=== PATIENT | male | born 1995 | race Caucasian/White ===

== ENCOUNTER 2019-08-31 20:27 | Inpatient (IN) | payer SELFPAY ==
[2019-08-31 20:32] VITALS: BP 145/89; PULSE 94; RESP 18; TEMP 36.4; O2SAT 96; BMI 18.4
--- NOTE | 2019-08-31 20:43 | ED_ITS ---
HPI - Psych General: Chief Complaint: Psychiatric Symptoms Stated Complaint: 96 Time Seen by Provider: 08/31/19 20:35 Source: patient Mode of arrival: ambulatory Limitations: no limitations History of Present Illness: HPI Narrative: 23-year-old male is here with police after being placed on a 96-hour hold. Per family he has been using drugs and has been very paranoid. They state they have been concerned as he has not been himself and thinks that people are out to get him and are watching him. Patient here denies any suicidality or homicidality. He admits to smoking emmanuel nye. Associated symptoms: Deny depression Review of Systems Const: Denies: fever, chills, body aches or change in appetite Eyes: Denies: blurry vision or eye discomfort ENMT: Denies: throat pain or dental pain Card: Denies: chest pain Resp: Denies: shortness of breath GI: Denies: abdominal pain, nausea, vomiting or diarrhea : Denies: painful urination Musc: Denies: neck pain or back pain Skin/Breast: Denies: rash Neuro: Denies: headache Psych: Reports: paranoia; Denies: depression Chris/Lymph: Denies: easy bruising All/Imm: Denies: hives PFSH ED PFSH: Social History Smoking and tobacco status: current every day smoker Physical Exam Const: COMMON NORMALS: no apparent distress, oriented x3 and healthy appearing HENMT: COMMON NORMALS: normocephalic and head/scalp atraumatic HEAD & SCA LP: normocephalic and atraumatic Eye: COMMON NORMALS: PERRL and EOMs intact bilaterally PUPIL: Yes PERRL Neck/C-Spine: COMMON NORMALS: full ROM and supple Chest: COMMONS NORMALS: inspection of chest normal and palpation of chest normal Resp: COMMON NORMALS: normal respiratory effort, no retractions, no use of accessory muscles and clear to auscultation bilaterally AUSCULTATION: clear to auscultation bilaterally Cardio: COMMON NORMALS: regular rate, regular rhythm and no murmurs RATE: regular rate RHYTHM: regular rhythm GI: COMMON NORMALS: normal to inspection, nondistended, normoactive bowel sounds, soft to palpation, non-tender and no masses PALPATION: Yes soft Extremity: COMMON NORMALS: normal to inspection and full ROM Neuro: COMMON NORMALS: oriented x3, moves all extremities and no focal motor deficits Psych: COMMON NORMALS: mental status grossly normal and cooperative THOUGHT PROCESS: illogical Skin: COMMON NORMALS: no rashes or lesions noted and no wounds GENERAL SKIN EXAM: no rashes or lesions noted MDM - Psych MDM Narrative: Medical decision making narrative: Patient presents with acute psychosis with paranoia likely from drug abuse. Patient has no suicidal or homicidal ideations. Patient placed under a 96-hour hold by [facility]. I spoke to psychiatrist Dr. Tenorio and will admit. Lab Data: Labs: Lab Results 08/31/19 08/31/19 08/31/19 Range/Units 20:56 20:56 21:11 WBC 6.7 (4.0-10.0) 10^3/ uL RBC 4.92 (4.1-5.3) 10^6/u L Hgb 15.3 (11.7-16.6) g/dL Hct 45.3 (42.0-52.0) % MCV 92.1 (80-94) fL MCH 31.1 (28.0-34.0) pg MCHC 33.8 (30.0-36.0) g/dL RDW 13.4 (12.1-15.1) % Plt Count 284 (130-400) 10^3/c mm MPV 11.0 H (7.4-10.4) fL Neut % (Auto) 45.1 % Lymph % (Auto) 39.1 % Pickens % (Auto) 6.7 % Eos % (Auto) 7.5 % Baso % (Auto) 1.3 % Neut # (Auto) 3.0 (1.8-7.7) 10^3/u L Lymph # (Auto) 2.6 (0.8-4.8) 10^3/u L Pickens # (Auto) 0.5 (0.2-0.9) 10^3/u L Eos # (Auto) 0.5 (0.0-0.8) 10^3/u L Baso # (Auto) 0.1 (0.0-0.1) 10^3/u L Nucleated RBC % (a uto) 0 % Nucleated RBCs # 0.0 /100WBC Sodium Cancelled Potassium Cancelled Chloride Cancelled Carbon Dioxide Cancelled Anion Gap Cancelled BUN Cancelled Creatinine Cancelled GFR Calculation Cancelled Glucose Cancelled Calculated Osmolal ity Cancelled Calcium Cancelled Total Bilirubin Cancelled AST Cancelled ALT Cancelled Alkaline Phosphata se Cancelled Total Protein Cancelled Albumin Cancelled Globulin Cancelled Salicylates Cancelled Urine Opiates Scre en Negative (Negative) ng/mL Acetaminophen Cancelled Ur Barbiturates Sc reen Negative (Negative) ng/mL Ur Phencyclidine S crn Negative (Negative) ng/mL Ur Amphetamines Sc reen Positive H (Negative) ng/mL U Benzodiazepines Scrn Negative (Negative) ng/mL Urine Cocaine Scre en Negative (Negative) ng/mL U Marijuana (THC) Screen Positive H (Negative) ng/mL Ethyl Alcohol Cancelled Discharge Plan Discharge Patient Disposition: Admitted As Inpatient Clinical Impression: Acute psychosis Condition: Stable Referrals: Sang Apodaca Jr, MD [Family Provider] - Coding Level of Care Code ED Electronic Masking System Operator for Chg Fwd Exam Comprehensive
[2019-08-31 21:00] LABS: Basophils # 0.1 10^3/uL (0.0-0.1); Basophils % 1.3 %; Eosinophils # 0.5 10^3/uL (0.0-0.8); Eosinophils % 7.5 %; Hematocrit 45.3 % (42.0-52.0); Hemoglobin 15.3 g/dL (11.7-16.6); Lymphocytes # 2.6 10^3/uL (0.8-4.8); Lymphocytes % 39.1 %; Mean Corpuscular HGB Conc 33.8 g/dL (30.0-36.0); Mean Corpuscular Hemoglobin 31.1 pg (28.0-34.0); Mean Corpuscular Volume 92.1 fL (80-94); Monocytes # 0.5 10^3/uL (0.2-0.9); Monocytes % 6.7 %; Neutrophils % 45.1 %; Nucleated Red Blood Cells % 0 %; Platelet Count 284 10^3/cmm (130-400); Red Blood Count 4.92 10^6/uL (4.1-5.3); Red Cell Distribution Width 13.4 % (12.1-15.1); White Blood Count 6.7 10^3/uL (4.0-10.0)
[2019-08-31 21:20] LABS: Alanine Aminotransferase 14 U/L (0-41); Albumin Level 4.8 g/dL (3.5-5.2); Alkaline Phosphatase 73 IU/L (40-130); Anion Gap 15.2 (5-19); Aspartate Amino Transferase 18 U/L (0-40); Blood Urea Nitrogen 17 mg/dL (6-20); Calcium 10.1 mg/dL (8.5-10.5); Carbon Dioxide 28 mmol/L (22-29); Chloride 101 mmol/L (98-107); Glomerular Filtration Rate 117.8 mL/min (90-130); Glucose 111 mg/dL (65-115); Osmolality Calculated 287 mOsm/kg (285-295); Potassium 4.2 mmol/L (3.5-5.1); Sodium 140 mmol/L (136-145); Total Bilirubin 0.3 mg/dL (0.15-1.2); Total Protein 6.8 g/dL (6.6-8.7)
[2019-08-31 21:24] LABS: Acetaminophen < 5.0 ug/mL (10-30); Alcohol Level < 10 mg/dL (0-10); Salicylate < 0.3 mg/dL (3-10)
[2019-08-31 21:27] LABS: Amphetamines Screen Urine Positive (Negative); Barbiturates Screen Urine Negative (Negative); Benzodiazepines Screen Urine Negative (Negative); Cocaine Screen Urine Negative (Negative); Opiate Screen Urine Negative (Negative); PCP Screen Urine Negative (Negative); THC Screen Urine Positive (Negative)
[2019-08-31 22:21] VITALS: BP 123/78; PULSE 88; RESP 18; O2SAT 97
[2019-08-31 22:55] VITALS: BP 132/78; PULSE 68; RESP 16; O2SAT 97
[2019-08-31 23:25] VITALS: BP 132/90; PULSE 82; RESP 17; TEMP 36.5; O2SAT 100
[2019-09-01 06:00] VITALS: BP 111/74; PULSE 81; RESP 17; TEMP 36.8; O2SAT 97
--- NOTE | 2019-09-01 11:13 | PM.NHP ---
Providers/Chief Complaint Admitting Physician: Jorge Tenorio MD Chief Complaint: 96 HPI NPU History of Present Illness Chief complaint I was living in a motel. Some rowdyteenagers got me in trouble. Chief complaint: History of present illness: Rashad Kilgore Is a 23-year-old man with no prior psychiatric history who was admitted under a 96 hour involuntary commitment signed by Judge Diggs for suspected drug use. The patient himself admits that he was using amphetamines but denies that it is a problem. He says that he was living in a motel for about a week. He can explain why he left the home of his family to live in a motel. He does not seem to think it's much of a problem. He says that he plans to return to the motel. He does not volunteer that he was using amphetamines until he is informed that both marijuana and amphetamines were found in his urine. He considers the marijuana a medication. He has no other comments. He doesn't feel that we can do anything for him. He says that he is not feeling very well today and would like to go back to sleep. There are affidavits in his chart filed by his mother, Savi, his father, Garett, and his grandmother, Macey Canchola. All 3 affidavits indicate a significant change in the past week. He has been increasingly confused. All 3 described the events that demonstrate his degree of paranoia. These include reporting that his parents had drilled holes in the ceiling in his motel room and was watching his every move. Talking as though he had enhanced hearing and vision. The family is concerned because this is a significant change in his behavior and mental state. They do not see this as a chronic problem. However they make the argument that with continued similar activity, he will either harm himself or come to some harmful and. Mental health history:He denies any history of psychiatric hospitalizations or treatment. Social history:He is a high school graduate from [employer] and the [employer]. He is unemployed. He has no vocational plans. 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 He said that it was a horrible job.He has no career plans. I refer you to his mental status exam below. Legal history:He denied any history of incarceration or active charges or probation. Past medical history:He reports himself in good medical health. He denies the presence of any medication allergies. The only medication he is currently taking is marijuana. He has no history of surgeries. Mental Status Exam: The patient is encountered lying in his bed morning. He is easily aroused by verbal stimuli. He accompanies the physician to the interview room. He is not believed to be a reliable informant. Information provided is internally consistent. However he does not provide any more information than what is asked and many questions are answered with either an affirmative or negative nod. Appearance: hygiene is fair; no gross neurological deficits., gait is unremarkable; AIMS=0 Speech: Speech is of normal rate and rhythm and easily understood. Thought processes: Thought processes are Unable to be assessed. Judgment is not adequate for safety. Psychotic processes: There is no indication of guarding or paranoia. There is no attention to the internal stimuli. Auditory and visual hallucinations are denied. Judgment: Insight is Not assessed. Problem solving skills are Not formally assessed Orientation: The patient is oriented to person, place time and situation. Memory: no deficits noted in immediate, intermediate, or remote spheres. Attention: The patient is alert and interpersonally engaged. Language: Verbalizations are coherent. Fund of knowledge: Fund of knowledge is Not assessed Affect/Mood: Affect is Flat with a Self-reported euthymic mood. He denied suicidal ideation Affective range Constricted Psychosis: perception unimpaired except through cognitive distortion; reality testing intact. Diagnoses: Amphetamine intoxication Amphetamine use disorder Assessment:At this time, his diagnoses are limited to his substance use problem on presentation. He was not motivated to be engaged in this interview. However he appears to be a person that eventually will be motivated to be more candid about his situation and engage in therapeutic efforts if he so chooses. Treatment plan: Due to the psychiatric conditions and treatment listed in the Assessment and Plan - the patient requires continued hospitalization. Will provide a safe and therapeutic environment for patient.. Will continue inpatient treatment to allow for medication adjustment and monitoring. Will continue q15 min safety checks. Hospital day #1: At this point we will initiate the methamphetamine withdrawal protocol. No further medications will be provided. We will reassess him again tomorrow. Monitor patient's mood, sleep, appetite, and behavior closely. Encourage patient to participate in individual and group therapeutic sessions on the chavira. Estimated length of stay 5 days The expected benefits and potential side effects of patient's psychiatric medications were discussed with the patient. The patient understands and consents to treatment.CRITERIA FOR DISCHARGE: stable on medications and no longer an im Meds NPU Home Medications Medication Instructions Recorded Confirmed Type No Known Home Medications 08/31/19 08/31/19 History Allergies Allergy/AdvReac Type Severity Reaction Status Date / Time No Known Allergies Allergy Verified 08/31/19 20:42 PFSH NPU PFSH: Social History Smoking and tobacco status: current every day smoker Vitals/I&O/Wt Last Vital Signs Temp 98.3 F 09/01/19 06:00 Pulse 81 09/01/19 06:00 Resp 17 09/01/19 06:00 BP 111/74 09/01/19 06:00 Pulse Ox 97 09/01/19 06:00 Weight last 48 hrs Weight 56.699 kg Data NPU : 08/31/19 20:56 08/31/19 20:56 Involuntary Hold Information 96 Hour Hold: 96 Hour Involuntary Admission: Yes 96 Hour Hold Ending Date: 09/06/19 96 Hour Hold Ending Time: 20:27 Attestations NPU Medical Necessity Statement*: Patient will remain in the hospital another 5-6 nights for the completion of his 96 hour involuntary commitment. Coding Level of Care Code Acute Template Inspector for Ayo Coelho
[2019-09-01 14:00] VITALS: BP 125/76; PULSE 110; RESP 20; TEMP 37.1; O2SAT 99
[2019-09-01 22:00] VITALS: BP 115/68; PULSE 89; RESP 17; TEMP 36.7; O2SAT 100
[2019-09-02 06:00] VITALS: BP 112/74; PULSE 77; RESP 17; TEMP 36.6; O2SAT 98
--- NOTE | 2019-09-02 10:10 | PM.NPN ---
Subjective NPU Subjective: Interval history: Patient states that he is fine. He says he slept well. He says that there are no problems that he has to discuss. He still claims that the events leading to his 96-hour involuntary commitment are untrue even though there are 3 different affidavits by 3 different family members which tell a consistent story. He admits that he uses marijuana and methamphetamine. He does not feel that any type of intervention is warranted. He insists that he is not an imminent risk to self or others. Mental Status Exam MSE Comments: Mental Status Exam: pt passively refuses to engage in discussion Appearance: hygiene is fair; no gross neurological deficits., gait is unremarkable; AIMS=0 Speech: Speech is of normal rate and rhythm and easily understood. Thought processes: Thought processes are Unable to be assessed. Judgment is not adequate for safety. Psychotic processes: There is no indication of guarding or paranoia. There is no attention to the internal stimuli. Auditory and visual hallucinations are denied. Judgment: Insight is Not assessed. Problem solving skills are Not formally assessed Orientation: The patient is oriented to person, place time and situation. Memory: no deficits noted in immediate, intermediate, or remote spheres. Attention: The patient is alert and interpersonally engaged. Language: Verbalizations are coherent. Fund of knowledge: Fund of knowledge is Not assessed Affect/Mood: Affect is Flat with a Self-reported euthymic mood. He denied suicidal ideation Affective range Constricted Psychosis: perception unimpaired except through cognitive distortion; reality testing intact. Cognition: Patient Appearance: No Eye Contact Level of Consciousness: Awake, Alert, Appropriate and Follows Commands Patient Cognition Impaired: No Ability to Follow Directions: Good Patient Orientation (long list): Person, Place and Time Comprehension Ability: No Impairment Hallucination Type: None Delusion Description: Not Present Thought Process: Blocking Affect: Affect Description: Depressed, Flat and Guarded Depressive Symptoms: Unhappiness Behavior: Patient Behavior: Evasive and Withdrawn Speech Pattern: Delayed Vitals/I&O/Wt Last Vital Signs Temp 97.9 F 09/02/19 06:00 Pulse 77 09/02/19 06:00 Resp 17 09/02/19 06:00 BP 112/74 09/02/19 06:00 Pulse Ox 98 09/02/19 06:00 Weight last 48 hrs Weight 56.699 kg Data NPU : 08/31/19 20:56 08/31/19 20:56 A&P Additional A&P Information Diagnoses: Amphetamine intoxication Amphetamine use disorder Assessment:At this time, his diagnoses are limited to his substance use problem on presentation. He was not motivated to be engaged in this interview. However he appears to be a person that eventually will be motivated to be more candid about his situation and engage in therapeutic efforts if he so chooses. Treatment plan: Due to the psychiatric conditions and treatment listed in the Assessment and Plan - the patient requires continued hospitalization. Will provide a safe and therapeutic environment for patient.. Will continue inpatient treatment to allow for medication adjustment and monitoring. Will continue q15 min safety checks. Hospital day #1: At this point we will initiate the methamphetamine withdrawal protocol. No further medications will be provided. We will reassess him again tomorrow. Hospital day #2: Patient continues to insist that he needs no help but he is not a danger to self or others and that there is nothing about his life that he wants to discuss. He was advised that most people have issues in their lives that they do not feel comfortable discussing with friends or family and that this was a good time to utilize the services available to explore things about his life which he might want to alter or change. No, I am good. Monitor patient's mood, sleep, appetite, and behavior closely. Encourage patient to participate in individual and group therapeutic sessions on the chavira. Estimated length of stay 5 days The expected benefits and potential side effects of patient's psychiatric medications were discussed with the patient. The patient understands and consents to treatment.CRITERIA FOR DISCHARGE: stable on medications and no longer an im Involuntary Hold Information 96 Hour Hold: 96 Hour Involuntary Admission: Yes 96 Hour Hold Ending Date: 09/06/19 96 Hour Hold Ending Time: 20:27 Attestations NPU Medical Necessity Statement*: Patient remained in the hospital another 4-5 nights for the completion of his 96-hour involuntary commitment. Coding Level of Care Code Acute Second Hand Paper Machine for Ayo Coelho
[2019-09-02 12:49] VITALS: BP 116/70; PULSE 80; RESP 18; TEMP 36.8; O2SAT 97
[2019-09-02 22:00] VITALS: BP 118/80; PULSE 83; RESP 18; TEMP 36.6; O2SAT 97
[2019-09-03 06:00] VITALS: BP 118/83; PULSE 67; RESP 16; TEMP 36.6; O2SAT 96
[2019-09-03 14:00] VITALS: BP 120/80; PULSE 70; RESP 18; TEMP 36.6; O2SAT 97
--- NOTE | 2019-09-03 14:59 | P.PN_ITS ---
Subjective NPU Subjective: Interval history: Rashad presented today reporting that he still feels like he is unclear as to why he is here that he does not feel like he did anything out of the ordinary. He feels like there is no need for medication and that his plan is to get out of here and find some work opportunity and just rebuild his life. We discussed the risks benefits and alternatives of not considering a medication to assist his overall functioning and he understood and agreed to proceed as is documented in his note. Mental Status Exam MSE Comments: This is an underweight but well-developed white male with adequate dress grooming and limited eye contact. No abnormal movements except for mild psychomotor retardation. Cooperative with exam in no acute distress. Speech was decreased rate and volume mood described as okay affect congruent and somewhat odd. Thought process organized. Thought content: Patient denied any suicidal or homicidal ideation, there were no delusions reported or noted, he denied any auditory or visual hallucinations. Attention and concentration appear intact and memory appears unreliable but none were formally tested. He is alert and oriented times person and place. Insight and judgment are limited. Vitals/I&O/Wt Last Vital Signs Temp 97.8 F 09/03/19 14:00 Pulse 70 09/03/19 14:00 Resp 18 09/03/19 14:00 BP 120/80 09/03/19 14:00 Pulse Ox 97 09/03/19 14:00 Weight last 48 hrs Weight 55.61 kg Data NPU : 08/31/19 20:56 08/31/19 20:56 A&P Assessment and plan (1) Acute psychosis: This is a 23-year-old white male who presents with a very subtle psychosis with mild disorganization which could represent a mild schizophrenia but could also represent some personality disorder and cluster a with no interest in a trial of medication on a 96-hour hold. 1. continue current medication. We will continue to try to encourage a trial of medication would likely do quite well on a small dose of Abilify. 2. Encourage individual and milieu therapy. 3. Continue to 15-minute checks for safety. 4. We will work with social work team to explore options for after discharge tomorrow. Status: Acute Involuntary Hold Information 96 Hour Hold: 96 Hour Involuntary Admission: Yes 96 Hour Hold Ending Date: 09/06/19 96 Hour Hold Ending Time: 20:27 Attestations NPU Medical Necessity Statement*: Inpatient hospitalization is medically necessary and the clinically appropriate intervention at this time. We will monitor and offer medications as indicated. Likely length of stay 2 to 4 days. Coding Level of Care Code Acute Insurance Account Manager for Ayo Fwd Diagnoses Acute psychosis F23
[2019-09-03 21:39] VITALS: BP 126/77; PULSE 82; RESP 20; TEMP 37.2; O2SAT 99
--- NOTE | 2019-09-03 21:49 | PC.NURSE ---
Pt offered prn trazodone for sleep at 2109, but refused.
[2019-09-04 06:00] VITALS: BP 123/80; PULSE 57; RESP 18; TEMP 36.8; O2SAT 99
[2019-09-04 14:00] VITALS: BP 148/88; PULSE 123; RESP 20; TEMP 36.6; O2SAT 99
--- NOTE | 2019-09-04 14:36 | PM.NPN ---
Subjective NPU Subjective: Interval history: Rashad presented today reporting a plan to get out of the hospital after his 96-hour hold was up and just walked to another state. He was able to identify that he might need a second pair shoes on the way if he is going to walk that far. I challenged him on whether or not that with improvement decision he responded that he is done that before. When I queried about whether or not he had walked from [place] to another state he then backtracked and just said that he did leave when he was about 15 and figure things out for himself until he came back when he was about 18 and really did not have a concrete plan for what he would do that made any rational sense. He continued to deny the need for medication and the desire to just be discharged tomorrow at the completion of his time. Mental Status Exam MSE Comments: This is an underweight but well-developed white male with adequate dress grooming and limited eye contact. No abnormal movements except for mild psychomotor retardation. Cooperative with exam in no acute distress. Speech was decreased rate and volume. Mood described as fine; affect congruent and somewhat odd. Thought process mostly organized. Thought content: Patient denied any suicidal or homicidal ideation, there were no delusions reported or noted, he denied any auditory or visual hallucinations. Attention and concentration appear intact and memory appears reliable in general, but none were formally tested. He is alert and oriented times person and place. Insight and judgment are limited. Vitals/I&O/Wt Last Vital Signs Temp 97.7 F 09/04/19 22:00 Pulse 83 09/04/19 22:00 Resp 17 09/04/19 22:00 BP 136/93 09/04/19 22:00 Pulse Ox 98 09/04/19 22:00 Weight last 48 hrs Weight 55.61 kg Data NPU : 08/31/19 20:56 08/31/19 20:56 A&P Additional A&P Information (1) Acute psychosis: This is a 23-year-old white male who presents with a very subtle psychosis with mild disorganization which could represent a mild schizophrenia but could also represent some personality disorder and cluster a with no interest in a trial of medication on a 96-hour hold. 1. continue current medication. We will continue to try to encourage a trial of medication would likely do quite well on a small dose of Abilify. 2. Encourage individual and milieu therapy. 3. Continue to 15-minute checks for safety. 4. We will work with social work team to explore options for aftercare, and plan for discharge before 96 hour hold concludes Involuntary Hold Information 96 Hour Hold: 96 Hour Involuntary Admission: Yes 96 Hour Hold Ending Date: 09/06/19 96 Hour Hold Ending Time: 20:27 Attestations NPU Medical Necessity Statement*: Inpatient hospitalization is medically necessary and the clinically appropriate intervention at this time. We will monitor and offer medications as indicated. Likely length of stay 1-3 days. Tentative plan for discharge tomorrow. Coding Level of Care Code Acute Burring Wheel Operator for Ayo Coelho
[2019-09-04] MEDS: trazodone 50 mg Tablet PO (20:42)
--- NOTE | 2019-09-04 21:50 | PC.NURSE ---
Pt given prn trazodone at 2041.
[2019-09-04 22:00] VITALS: BP 136/93; PULSE 83; RESP 17; TEMP 36.5; O2SAT 98
[2019-09-05 05:53] VITALS: BP 105/63; PULSE 67; RESP 15; TEMP 36.8; O2SAT 98
[2019-09-05 14:00] VITALS: BP 111/71; PULSE 93; RESP 20; TEMP 36.3; O2SAT 98
--- NOTE | 2019-09-05 15:38 | PM.NDC ---
Diagnoses at Discharge Discharge Diagnosis (1) Acute psychosis: Status: Acute Reason for Visit Reason for Visit: Reason For Visit: 96 Brief History: History of Present Illness Chief complaint I was living in a motel. Some rowdyteenagers got me in trouble. Chief complaint: History of present illness: Rashad Kilgore Is a 23-year-old man with no prior psychiatric history who was admitted under a 96 hour involuntary commitment signed by Judge Diggs for suspected drug use. The patient himself admits that he was using amphetamines but denies that it is a problem. He says that he was living in a motel for about a week. He can explain why he left the home of his family to live in a motel. He does not seem to think it's much of a problem. He says that he plans to return to the motel. He does not volunteer that he was using amphetamines until he is informed that both marijuana and amphetamines were found in his urine. He considers the marijuana a medication. He has no other comments. He doesn't feel that we can do anything for him. He says that he is not feeling very well today and would like to go back to sleep. There are affidavits in his chart filed by his mother, Savi, his father, Garett, and his grandmother, Macey Canchola. All 3 affidavits indicate a significant change in the past week. He has been increasingly confused. All 3 described the events that demonstrate his degree of paranoia. These include reporting that his parents had drilled holes in the ceiling in his motel room and was watching his every move. Talking as though he had enhanced hearing and vision. The family is concerned because this is a significant change in his behavior and mental state. They do not see this as a chronic problem. However they make the argument that with continued similar activity, he will either harm himself or come to some harmful and. Mental health history:He denies any history of psychiatric hospitalizations or treatment. Social history:He is a high school graduate from [employer]. He is unemployed. He has no vocational plans. 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. He said that it was a horrible job.He has no career plans. I refer you to his mental status exam below. Legal history:He denied any history of incarceration or active charges or probation. Past medical history:He reports himself in good medical health. He denies the presence of any medication allergies. The only medication he is currently taking is marijuana. He has no history of surgeries. Mental Status Exam: The patient is encountered lying in his bed morning. He is easily aroused by verbal stimuli. He accompanies the physician to the interview room. He is not believed to be a reliable informant. Information provided is internally consistent. However he does not provide any more information than what is asked and many questions are answered with either an affirmative or negative nod. Appearance: hygiene is fair; no gross neurological deficits., gait is unremarkable; AIMS=0 Speech: Speech is of normal rate and rhythm and easily understood. Thought processes: Thought processes are Unable to be assessed. Judgment is not adequate for safety. Psychotic processes: There is no indication of guarding or paranoia. There is no attention to the internal stimuli. Auditory and visual hallucinations are denied. Judgment: Insight is Not assessed. Problem solving skills are Not formally assessed Orientation: The patient is oriented to person, place time and situation. Memory: no deficits noted in immediate, intermediate, or remote spheres. Attention: The patient is alert and interpersonally engaged. Language: Verbalizations are coherent. Fund of knowledge: Fund of knowledge is Not assessed Affect/Mood: Affect is Flat with a Self-reported euthymic mood. He denied suicidal ideation Affective range Constricted Psychosis: perception unimpaired except through cognitive distortion; reality testing intact. Diagnoses: Amphetamine intoxication Amphetamine use disorder Assessment:At this time, his diagnoses are limited to his substance use problem on presentation. He was not motivated to be engaged in this interview. However he appears to be a person that eventually will be motivated to be more candid about his situation and engage in therapeutic efforts if he so chooses. Treatment plan: Due to the psychiatric conditions and treatment listed in the Assessment and Plan - the patient requires continued hospitalization. Will provide a safe and therapeutic environment for patient.. Will continue inpatient treatment to allow for medication adjustment and monitoring. Will continue q15 min safety checks. Hospital day #1: At this point we will initiate the methamphetamine withdrawal protocol. No further medications will be provided. We will reassess him again tomorrow. Monitor patient's mood, sleep, appetite, and behavior closely. Encourage patient to participate in individual and group therapeutic sessions on the chavira. Estimated length of stay 5 days The expected benefits and potential side effects of patient's psychiatric medications were discussed with the patient. The patient understands and consents to treatment.CRITERIA FOR DISCHARGE: stable on medications and no longer an im Hospital Course Hospital Course Rashad presented to the emergency room on a 96-hour hold secondary to behaviors that were out of sorts with recent methamphetamine use. He was admitted to the neuropsychiatric unit but refused medication and most interventions. He slowly acclimated to the resources provided. He was not interested in medication or really being connected with outpatient services and mostly endorsed a plan to leave the state as he reportedly did when he was 15 and believes he was able to manage just fine. His psychosis mostly manifested in an amotivational type syndrome. This also could represent significant cluster a pathology or autism. He was kept and observed for the majority of the hold. And he did not change his mind about accepting resources, medication or recommendations. He also lacked signs of credible lethality to extend the 96-hour hold. During the hospitalization he had routine laboratory studies which were within normal limits except for a few outliers. Additionally there was a general medical evaluation which was also within normal limits and revealed no new acute processes. Discharge Summary At the time of discharge, he denied any lethality and was absent psychosis. Mood and anxiety were well managed and he endorsed a plan to avoid drugs of abuse but was not interested in follow-up with the recommended post hospital services. He was evaluated and deemed to be absent lethality and had received the maximum benefit from an inpatient hospitalization given his refusal to accept medication or other interventions, so was discharged. Involuntary Hold Information 96 Hour Hold: 96 Hour Involuntary Admission: Yes 96 Hour Hold Ending Date: 09/06/19 96 Hour Hold Ending Time: 20:27 Mental Status Exam MSE Comments: This is an underweight but well-developed white male with adequate dress grooming and limited eye contact. No abnormal movements except for mild psychomotor retardation. Cooperative with exam in no acute distress. Speech was decreased rate and volume. Mood described as OK; affect congruent and somewhat odd. Thought process mostly organized. Thought content: Patient denied any suicidal or homicidal ideation, there were no delusions reported or noted but he holds some odd perspectives that could represent delusions held close to the cuff or cluster A oddities , he denied any auditory or visual hallucinations. Attention and concentration appear intact and memory appears reliable in general, but none were formally tested. He is alert and oriented times person and place. Insight and judgment are limited. Discharge Data Vitals: Last Vital Signs Temp 97.3 F L 09/05/19 14:00 Pulse 93 09/05/19 14:00 Resp 20 H 09/05/19 14:00 BP 111/71 09/05/19 14:00 Pulse Ox 98 09/05/19 14:00 Discharge Plan Discharge Patient Disposition: Home, Self-Care Condition: Stable Prescriptions: Continued No Known Home Medications RF: 0 Discharge Orders: Discharge Order (Routine); Ordered 09/05/19 Ordered By: Ken Kilgore Referrals: [facility] [Outside] (you will need to call about getting services set up, if you decide that you will remain in this area and you want the services for outpatient mental health. ) [facility] [Outside] (call if you want assistance with substance abuse treatment. ) Sang Apodaca Jr, MD [Family Provider] - Discharge Diet: Regular Discharge Activity: Resume usual activity Discharge Date/Time: 09/05/19 16:24 Discharge Attestations NPU Time Spent in Discharge Care*: less than 30 min Specific Discharge Activities: Specific discharge activities: educating patient, discussing with manager of case/social workers/dc planners, documenting/other paperwork and evaluating patient/reviewing data Coding Level of Care Code Acute Cuff Folder for Ayo Coelho Diagnoses Acute psychosis F23
[2019-09-05 16:04] VITALS: BP 111/71; PULSE 93; RESP 20; TEMP 36.3; O2SAT 98
== END 2019-09-05 16:24 | disposition home or self-care (01) | DRG 897 ==
LOC: ER 21:33 → NP 22:07
PROVIDERS: Admitting Provider Psychiatry & Neurology Psychiatry; Emergency Provider Emergency Medicine; Family Provider Pediatrics Adolescent Medicine; Visit Provider Psychiatry & Neurology Psychiatry
DX: F15.229 Other stimulant dependence with intoxication, unspecified (principal); F17.210 Nicotine dependence, cigarettes, uncomplicated
CPT/HCPCS: 12345; 80053; 80306; 80307; 85025; 99284; 99285

== ENCOUNTER 2021-01-06 06:11 | Inpatient (IN) | payer SELFPAY ==
[2021-01-06 06:16] VITALS: BP 139/91; PULSE 69; RESP 16; TEMP 36.3; O2SAT 96; BMI 19.2
[2021-01-06 06:45] LABS: Basophils # 0.1 10^3/uL (0.0-0.1); Basophils % 0.6 %; Eosinophils # 0.1 10^3/uL (0.0-0.8); Eosinophils % 0.9 %; Hematocrit 50.3 % (42.0-52.0); Lymphocytes # 2.5 10^3/uL (0.8-4.8); Lymphocytes % 23.4 %; Mean Corpuscular HGB Conc 33.8 g/dL (30.0-36.0); Mean Corpuscular Hemoglobin 31.4 pg (28.0-34.0); Mean Corpuscular Volume 92.8 fl (80-94); Mean Platelet Volume 10.6 fL (7.4-10.4); Monocytes # 0.6 10^3/uL (0.2-0.9); Monocytes % 5.7 %; Neutrophils # 7.44 10^3/uL (1.8-7.7); Nucleated Red Blood Cells % 0 %; Platelet Count 295 10^3/cmm (130-400); Red Blood Count 5.42 10^6/uL (4.1-5.3); Red Cell Distribution Width 12.8 % (12.1-15.1); White Blood Count 10.8 10^3/uL (4.0-10.0)
[2021-01-06 06:52] LABS: Add Urine Microscopic? NO; Charge for UA Resulting for Rev
[2021-01-06 06:56] LABS: Alanine Aminotransferase 11 U/L (0-41); Albumin Level 5.5 g/dL (3.5-5.2); Alkaline Phosphatase 88 IU/L (40-130); Anion Gap 19.6 (5-19); Aspartate Amino Transferase 15 U/L (0-40); Blood Urea Nitrogen 12 mg/dL (6-20); Carbon Dioxide 26 mmol/L (22-29); Chloride 101 mmol/L (98-107); Globulin 2.5 g/dL (1.3-4.6); Glomerular Filtration Rate 135.3 mL/min (90-130); Glucose 110 mg/dL (65-115); Osmolality Calculated 296 mOsm/kg (285-295); Potassium 3.6 mmol/L (3.5-5.1); Sodium 143 mmol/L (136-145); Total Bilirubin 0.3 mg/dL (0.15-1.2)
[2021-01-06 06:57] LABS: Acetaminophen < 5.0 ug/mL (10-30); Salicylate < 0.3 mg/dL (3-10)
[2021-01-06 07:05] LABS: Bilirubin Urine Neg (Negative); Blood Urine Neg (Negative); Glucose Urine UA Norm (Normal); Ketones Urine Negative (Negative); Leukocyte Esterase Urine Negative (Negative); Nitrate Urine Negative (Negative); Protein Urine Neg (Negative); Urine Appearance Clear (CLEAR); Urine Color Yellow (Yellow); Urobilinogen Urine Norm (Negative); pH Urine 5 (5-7)
--- NOTE | 2021-01-06 07:27 | W.ED.PSYCH ---
HPI - Psych General: Chief Complaint: Psychiatric Symptoms Stated Complaint: auditory hallucinations Time Seen by Provider: 01/06/21 06:28 History of Present Illness: HPI Narrative: 25-year-old male presents to the emergency room with complaints of auditory hallucinations. He states that feels like someone is in the next room yelling at them continuously has not been able to sleep. States the voices are very angry. He denies any suicidal or homicidal ideation. He is not on any prescription medication denies any recent [id number] medication use denies any use of drugs or alcohol. He is not previously had this. Is not been seeing a psychiatrist is not on any antipsychotics no family history of psychiatric disease. He has not recently been ill or had Covid. MD complaint: feels depressed and altered mental status Onset (ago): day(s) Duration: constant History of same: No Relieving factors: none Exacerbating factors: none Associated psychiatric symptoms: none Associated symptoms: Reports auditory hallucinations, depression and racing thoughts; Deny visual hallucinations, homicidal ideation or suicidal ideation Treatments prior to arrival: none Review of Systems Const: Denies: fever(s), chills, body aches, change in appetite, fatigue or malaise ENMT: Denies: throat pain, ear or mastoid pain, nasal discharge or nasal congestion Card: Denies: chest pain, edema, dyspnea on exertion or orthopnea Resp: Denies: dyspnea, productive cough or non-productive cough GI: Denies: abdominal pain, nausea, vomiting, hematemesis, coffee ground emesis, diarrhea, constipation, bloating, hematochezia or melena : Denies: flank pain, dysuria, urinary frequency or urinary urgency Skin/Breast: Denies: rash or pruritus Psych: Reports: depression and auditory hallucinations; Denies: visual hallucinations, suicidal ideation or homicidal ideation [facility] ED PFSH: Social History Smoking and tobacco status: current every day smoker Physical Exam Const: COMMON NORMALS: no acute distress GENERAL APPEARANCE: cooperative and comfortable HENMT: COMMON NORMALS: normocephalic, atraumatic and hearing grossly normal bilaterally HEAD & SCALP: normocephalic and atraumatic Neck/C-Spine: COMMON NORMALS: no JVD Resp: COMMON NORMALS: normal respiratory effort, No retractions, No use of accessory muscles and clear to auscultation bilaterally AUSCULTATION: clear to auscultation bilaterally Cardio: COMMON NORMALS: no JVD, regular rate, regular rhythm and No murmurs present (Cardio) RATE: regular rate RHYTHM: regular rhythm GI: COMMON NORMALS: Soft to palpation and No hepatosplenomegaly present AUSCULTATION: Yes normoactive bowel sounds PALPATION: Yes Soft to palpation, No Tenderness to palpation present (GI), No Guarding due to palpation present (GI) and Yes No hepatosplenomegaly present Extremity: COMMON NORMALS: normal to inspection, capillary refill normal, no clubbing, cyanosis or edema, no calf tenderness and no pedal edema Skin: COMMON NORMALS: no rashes or lesions noted GENERAL SKIN EXAM: no rashes or lesions noted Course Vital Signs: Vital signs: Vital Signs Temperature 97.9 F 01/07/21 21:24 Pulse Rate 64 01/07/21 21:24 Respiratory Rate 18 01/07/21 21:24 Blood Pressure 115/71 01/07/21 21:24 Pulse Oximetry 97 01/07/21 21:24 MDM - Psych MDM Narrative: Medical decision making narrative: She denied any previous psychiatric history however on review of the inpatient chart he previously had been admitted for psychosis related to substance abuse. Dr. Kilgore although I had not noted the previous admission before I talked to Dr. Kilgore he is excepted the patient orders are written Lab Data: Labs: Lab Results 01/06/21 01/06/21 01/06/21 Range/Units 06:30 06:30 06:30 WBC 10.8 H (4.0-10.0) 10^3/ uL RBC 5.42 H (4.1-5.3) 10^6/u L Hgb 17.0 H (11.7-16.6) g/dL Hct 50.3 (42.0-52.0) % MCV 92.8 (80-94) fl MCH 31.4 (28.0-34.0) pg MCHC 33.8 (30.0-36.0) g/dL RDW 12.8 (12.1-15.1) % Plt Count 295 (130-400) 10^3/c mm MPV 10.6 H (7.4-10.4) fL Neut % (Auto) 69.0 % Lymph % (Auto) 23.4 % [facility] % (Auto) 5.7 % Eos % (Auto) 0.9 % Baso % (Auto) 0.6 % Neut # (Auto) 7.44 (1.8-7.7) 10^3/u L Lymph # (Auto) 2.5 (0.8-4.8) 10^3/u L [facility] # (Auto) 0.6 (0.2-0.9) 10^3/u L Eos # (Auto) 0.1 (0.0-0.8) 10^3/u L Baso # (Auto) 0.1 (0.0-0.1) 10^3/u L Nucleated RBC % (a uto) 0 % Nucleated RBCs # 0.0 /100WBC Sodium 143 (136-145) mmol/L Potassium 3.6 (3.5-5.1) mmol/L Chloride 101 (98-107) mmol/L Carbon Dioxide 26 (22-29) mmol/L Anion Gap 19.6 H (5-19) BUN 12 (6-20) mg/dL Creatinine 0.7 (0.7-1.2) mg/dL GFR Calculation 135.3 H (90-130) mL/min Glucose 110 (65-115) mg/dL Calculated Osmolal ity 296 H (285-295) mOsm/k g Calcium 10.0 (8.5-10.5) mg/dL Total Bilirubin 0.3 (0.15-1.2) mg/dL AST 15 (0-40) U/L ALT 11 (0-41) U/L Alkaline Phosphata se 88 (40-130) IU/L Total Protein 8.0 (6.6-8.7) g/dL Albumin 5.5 H (3.5-5.2) g/dL Globulin 2.5 (1.3-4.6) g/dL Urine Color Yellow (Yellow) Urine Appearance Clear (CLEAR) Urine pH 5 (5-7) Ur Specific Gravit y 1.010 (1.005-1.030) Urine Protein Neg (Negative) Urine Glucose (UA) Norm (Normal) Urine Ketones Negative (Negative) Urine Blood Neg (Negative) Urine Nitrate Negative (Negative) Urine Bilirubin Neg (Negative) Urine Urobilinogen Norm (Negative) mg/dL Ur Leukocyte Gabby ase Negative (Negative) Salicylates < 0.3 L (3-10) mg/dL Acetaminophen < 5.0 L (10-30) ug/mL Discharge Plan Discharge Patient Disposition: Admitted As Inpatient Admit Provider: Ken Kilgore Clinical Impression: Acute psychosis Condition: Stable Coding Level of Care Code ED Business Account Specialist for Ayo Coelho
[2021-01-06 08:23] VITALS: BP 134/84; PULSE 77; RESP 14; O2SAT 96
--- NOTE | 2021-01-06 08:27 | PC.NURSE ---
Addendum entered by TERRA Bishop 01/06/21 08:29: Pt denies current suicidal or homicidal ideation with auditory hallucinations. Original Note: Patient admitted to history of heavy alcohol and meth use up to about 1 month ago. Denies current meth use and limited alcohol use since then. Pt is resting calmly in bed with his mother present in room.
[2021-01-06 16:44] VITALS: BP 134/83; PULSE 77; RESP 17; TEMP 37.1; O2SAT 100
[2021-01-06 19:53] VITALS: BP 103/67; PULSE 62; RESP 18; TEMP 36.6; O2SAT 99
[2021-01-07 06:00] VITALS: BP 100/62; PULSE 66; RESP 18; TEMP 36.9; O2SAT 95
--- NOTE | 2021-01-07 10:19 | P.HP_ITS ---
Providers/Chief Complaint Admitting Physician: Ken Kilgore MD Chief Complaint: mhe HPI NPU History of Present Illness Rashad Kilgore is a 25 year old male who presented to the emergency department with the following report: Chief Complaint: Psychiatric Symptoms Stated Complaint: auditory hallucinations Time Seen by Provider: 01/06/21 06:28 History of Present Illness: HPI Narrative: 25-year-old male presents to the emergency room with complaints of auditory hallucinations. He states that feels like someone is in the next room yelling at them continuously has not been able to sleep. States the voices are very angry. He denies any suicidal or homicidal ideation. He is not on any prescription medication denies any recent imyx-lvw-fylkitt medication use denies any use of drugs or alcohol. He is not previously had this. Is not been seeing a psychiatrist is not on any antipsychotics no family history of psychiatric disease. He has not recently been ill or had Covid. MD complaint: feels depressed and altered mental status Onset (ago): day(s) Duration: constant History of same: No Relieving factors: none Exacerbating factors: none Associated psychiatric symptoms: none Associated symptoms: Reports auditory hallucinations, depression and racing thoughts; Deny visual hallucinations, homicidal ideation or suicidal ideation Treatments prior to arrival: none. He was admitted to the neuropsychiatric unit for definitive treatment of those issues. On the unit he presents as a fairly confused or resistant historian. Downplaying the role that addiction may have played in his presentation in either impressions, giving confusing or ambivalent answers to questions or saying I do not know. Denied recollection of his hospitalization 16 months ago. The interview did not yield much in the way of understanding his presentation other than him being clear that he is experiencing auditory hallucinations reporting that they get louder as his outside world gets quieter evidence overwhelming at times. We discussed the risk benefits and alternatives of initiating Abilify and he understood and agreed to proceed as documented in this note. He denies substantive changes in his own excerpt of his 2019 inpatient evaluation is included below for context. Per his 09/01/2019 [facility] inpatient psychiatric evaluation: History of Present Illness Chief complaint I was living in a motel. Some rowdyteenagers got me in trouble. Chief complaint: History of present illness: Rashad Kilgore Is a 23-year-old man with no prior psychiatric history who was admitted under a 96 hour involuntary commitment signed by Judge Diggs for suspected drug use. The patient himself admits that he was using amphetamines but denies that it is a problem. He says that he was living in a motel for about a week. He can explain why he left the home of his family to live in a motel. He does not seem to think it's much of a problem. He says that he plans to return to the motel. He does not volunteer that he was using amphetamines until he is informed that both marijuana and amphetamines were found in his urine. He considers the marijuana a medication. He has no other comments. He doesn't feel that we can do anything for him. He says that he is not feeling very well today and would like to go back to sleep. There are affidavits in his chart filed by his mother, Savi, his father, Garett, and his grandmother, Macey Canchola. All 3 affidavits indicate a significant change in the past week. He has been increasingly confused. All 3 described the events that demonstrate his degree of paranoia. These include reporting that his parents had drilled holes in the ceiling in his motel room and was watching his every move. Talking as though he had enhanced hearing and vision. The family is concerned because this is a significant change in his behavior and mental state. They do not see this as a chronic problem. However they make the argument that with continued similar activity, he will either harm himself or come to some harmful and. Mental health history:He denies any history of psychiatric hospitalizations or treatment. Social history:He is a high school graduate from [employer]. He is unemployed. He has no vocational plans. 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 He said that it was a horrible job.He has no career plans. I refer you to his mental status exam below. Legal history:He denied any history of incarceration or active charges or probation. Past medical history:He reports himself in good medical health. He denies the presence of any medication allergies. The only medication he is currently taking is marijuana. He has no history of surgeries. Mental Status Exam: The patient is encountered lying in his bed morning. He is easily aroused by verbal stimuli. He accompanies the physician to the interview room. He is not believed to be a reliable informant. Information provided is internally consistent. However he does not provide any more information than what is asked and many questions are answered with either an affirmative or negative nod. Appearance: hygiene is fair; no gross neurological deficits., gait is unremarkable; AIMS=0 Speech: Speech is of normal rate and rhythm and easily understood. Thought processes: Thought processes are Unable to be assessed. Judgment is not adequate for safety. Psychotic processes: There is no indication of guarding or paranoia. There is no attention to the internal stimuli. Auditory and visual hallucinations are denied. Judgment: Insight is Not assessed. Problem solving skills are Not formally assessed Orientation: The patient is oriented to person, place time and situation. Memory: no deficits noted in immediate, intermediate, or remote spheres. Attention: The patient is alert and interpersonally engaged. Language: Verbalizations are coherent. Fund of knowledge: Fund of knowledge is Not assessed Affect/Mood: Affect is Flat with a Self-reported euthymic mood. He denied suicidal ideation Affective range Constricted Psychosis: perception unimpaired except through cognitive distortion; reality testing intact. Diagnoses: Amphetamine intoxication Amphetamine use disorder Assessment:At this time, his diagnoses are limited to his substance use problem on presentation. He was not motivated to be engaged in this interview. However he appears to be a person that eventually will be motivated to be more candid about his situation and engage in therapeutic efforts if he so chooses. Treatment plan: Due to the psychiatric conditions and treatment listed in the Assessment and Plan - the patient requires continued hospitalization. Will provide a safe and therapeutic environment for patient.. Will continue inpatient treatment to allow for medication adjustment and monitoring. Will continue q15 min safety checks. Hospital day #1: At this point we will initiate the methamphetamine withdrawal p rotocol. No further medications will be provided. We will reassess him again tomorrow. Monitor patient's mood, sleep, appetite, and behavior closely. Encourage patient to participate in individual and group therapeutic sessions on the chavira. Estimated length of stay 5 days The expected benefits and potential side effects of patient's psychiatric medications were discussed with the patient. The patient understands and consents to treatment.CRITERIA FOR DISCHARGE: stable on medications and no l onger an im Meds NPU Home Medications Medication Instructions Recorded Confirmed Last Taken Type No Known Home Medications 08/31/19 01/06/21 Unknown History Allergies Allergy/AdvReac Type Severity Reaction Status Date / Time fire ant Allergy Unknown Verified 01/06/21 08:25 PFSH NPU PFSH: Social History Smoking and tobacco status: current every day smoker Mental Status Exam MSE Comments: This is an underweight but well-developed white male in hospital scrubs with adequate grooming and limited eye contact. No abnormal movements except for moderate psychomotor retardation. Cooperative with exam in no acute distress. Speech was decreased rate and volume. Mood described as OK; affect congruent and odd. Thought process mostly organized. Thought content: Patient denied any suicidal or homicidal ideation, there were no delusions reported or noted, he endorsed auditory hallucinations but denied visual hallucinations. Attention and concentration appear intact and memory appears reliable in [facility], but none were formally tested. He is alert and oriented times person and place. Insight and judgment are limited to impaired. Vitals/I&O/Wt Last Vital Signs Temp 98.4 F 01/07/21 06:00 Pulse 66 01/07/21 06:00 Resp 18 01/07/21 06:00 BP 100/62 01/07/21 06:00 Pulse Ox 95 01/07/21 06:00 Weight last 48 hrs Weight 58.967 kg Data NPU : 01/06/21 06:30 01/06/21 06:30 A&P Assessment and plan (1) Acute psychosis: Status: Acute (2) Auditory hallucinations: Status: Acute (3) History of drug abuse: Status: Acute Additional A&P Information This is a 25-year-old white male with a previous hospitalization who presents with psychosis manifested with auditory hallucinations with pending drug screen open to a trial of an antipsychotic. 1. Continue current medication. Start Abilify 10 mg p.o. every morning in the morning. 2. Continue every 15 minute checks for safety. 3. Encourage individual, group and milieu therapies. 4. Encourage sober living treatment after discharge at the highest level of care to which he is willing to commit. Involuntary Hold Information 96 Hour Hold: 96 Hour Involuntary Admission: No 96 Hour Hold Ending Date: 09/06/19 96 Hour Hold Ending Time: 20:27 Attestations NPU Medical Necessity Statement*: Inpatient hospitalization is medically necessary and the clinically appropriate intervention at this time. We will monitor medications and make changes as indicated. Patient will be in the hospital for over two midnights. Likely length of stay 3 to 5 days. Coding Level of Care Code Acute Stoker Erector And Servicer for Ayo Coelho Diagnoses Acute psychosis F23 Auditory hallucinations R44.0 History of drug abuse F19.11
--- NOTE | 2021-01-07 12:17 | NPU.GN ---
[facility] Group Topic:2 true one false General Mood of Group: Patient did not participate in group today.
[2021-01-07 14:00] VITALS: BP 113/67; PULSE 74; RESP 18; TEMP 36.7; O2SAT 99
[2021-01-07 21:24] VITALS: BP 115/71; PULSE 64; RESP 18; TEMP 36.6; O2SAT 97
[2021-01-08 06:00] VITALS: BP 114/67; PULSE 98; RESP 16; TEMP 36.8; O2SAT 95
[2021-01-08 08:50] LABS: Amphetamines Screen Urine Negative (Negative); Barbiturates Screen Urine Negative (Negative); Benzodiazepines Screen Urine Negative (Negative); Cocaine Screen Urine Negative (Negative); Opiate Screen Urine Negative (Negative); PCP Screen Urine Negative (Negative); THC Screen Urine Positive (Negative)
[2021-01-08] MEDS: ARIPiprazole 10 mg Tablet PO (09:48)
[2021-01-08 14:00] VITALS: BP 122/77; PULSE 75; RESP 17; TEMP 36.6; O2SAT 98
--- NOTE | 2021-01-08 16:01 | P.PN_ITS ---
Subjective NPU Subjective: Interval history: Kayla presents today denying any problems with the initiation of the medication and asking whether there are people who ended up having the voices go away completely who has struggled with auditory hallucinations like he is. He endorsed being invested in trying the treatment and making changes as indicated. Mental Status Exam MSE Comments: This is an underweight but well-developed white male in hospital scrubs with adequate grooming and limited eye contact. No abnormal movements except for moderate psychomotor retardation. Cooperative with exam in no acute distress. Speech was decreased rate and volume. Mood described as OK; affect congruent and odd. Thought process mostly organized. Thought content: Patient denied any suicidal or homicidal ideation, there were no delusions reported or noted, he endorsed auditory hallucinations but denied visual hallucinations. Attention and concentration appear intact and memory appears reliable in [facility], but none were formally tested. He is alert and oriented times person and place. Insight and judgment are limited to impaired. Vitals/I&O/Wt Last Vital Signs Temp 97.9 F 01/08/21 14:00 Pulse 75 01/08/21 14:00 Resp 17 01/08/21 14:00 BP 122/77 01/08/21 14:00 Pulse Ox 98 01/08/21 14:00 Data NPU : 01/06/21 06:30 01/06/21 06:30 A&P Additional A&P Information (1) Acute psychosis: (2) Auditory hallucinations: (3) History of drug abuse: This is a 25-year-old white male with a previous hospitalization who presents with psychosis manifested with auditory hallucinations with pending drug screen open to a trial of an antipsychotic. 1. Continue current medication. We discussed the possibility of something for anxiety at bedtime if he continues to have worsening at that time. 2. Continue every 15 minute checks for safety. 3. Encourage individual, group and milieu therapies. 4. Encourage sober living treatment after discharge at the highest level of care to which he is willing to commit. Involuntary Hold Information 96 Hour Hold: 96 Hour Involuntary Admission: No 96 Hour Hold Ending Date: 09/06/19 96 Hour Hold Ending Time: 20:27 Attestations NPU Medical Necessity Statement*: Inpatient hospitalization is medically necessary and the clinically appropriate intervention at this time. We will monitor medications and make changes as indicated. Likely length of stay 2-4 days. Coding Level of Care Code Acute Perennial House Manager for Ayo Coelho
--- NOTE | 2021-01-08 17:05 | PC.RESP ---
SMOKING CESSATION INFORMATION SENT TO PATIENT.
[2021-01-08 20:21] VITALS: BP 117/77; PULSE 69; RESP 18; TEMP 36.8; O2SAT 99
[2021-01-09 06:00] VITALS: BP 119/55; PULSE 58; RESP 16; TEMP 36.8; O2SAT 96
[2021-01-09] MEDS: ARIPiprazole 10 mg Tablet PO (08:00)
--- NOTE | 2021-01-09 13:36 | NPU.GN ---
[facility] Group Topic:Communications General Mood of Group: Patient did not want to go to group today and refused.
[2021-01-09 14:00] VITALS: BP 117/69; PULSE 67; RESP 18; TEMP 36.6; O2SAT 95
--- NOTE | 2021-01-09 18:34 | P.PN_ITS ---
Subjective NPU Subjective: Interval history: Patient presents today reporting that he is feeling a little better with the medication still having difficulties at night with auditory hallucinations that are becoming unbearable. We discussed the possibility of increasing his Abilify to the morning but trying a small dose of Zyprexa at night to possibly help with the sleep and had immediate timeframe. We discussed was benefits and alternatives of making this decision and he understood agreed proceed as documented in this note. Mental Status Exam MSE Comments: This is an underweight but well-developed white male in hospital scrubs with adequate grooming and limited eye contact. No abnormal movements except for moderate psychomotor retardation. Cooperative with exam in mild distress. Speech was decreased rate and volume. Mood described as all right but still struggling with the voices; affect congruent and odd. Thought process mostly organized. Thought content: Patient denied any suicidal or homicidal ideation, there were no delusions reported or noted, he endorsed auditory hallucinations but denied visual hallucinations. Attention and concentration appear intact and memory appears reliable in general, but none were formally tested. He is alert and oriented times person and place. Insight and judgment are limited to impaired. Vitals/I&O/Wt Last Vital Signs Temp 98.2 F 01/09/21 22:00 Pulse 79 01/09/21 22:00 Resp 17 01/09/21 22:00 BP 126/77 01/09/21 22:00 Pulse Ox 98 01/09/21 22:00 Data NPU : 01/06/21 06:30 01/06/21 06:30 A&P Additional A&P Information (1) Acute psychosis: (2) Auditory hallucinations: (3) History of drug abuse: This is a 25-year-old white male with a previous hospitalization who presents with psychosis manifested with auditory hallucinations with pending drug screen open to a trial of an antipsychotic. 1. Continue current medication. We will increase the Abilify to 15 mg in the morning and give him 5 mg of Zyprexa tonight and see if that does not assist with his nighttime symptoms. 2. Continue every 15 minute checks for safety. 3. Encourage individual, group and milieu therapies. 4. Encourage sober living treatment after discharge at the highest level of care to which he is willing to commit. Involuntary Hold Information 96 Hour Hold: 96 Hour Involuntary Admission: No 96 Hour Hold Ending Date: 09/06/19 96 Hour Hold Ending Time: 20:27 Attestations NPU Medical Necessity Statement*: Inpatient hospitalization is medically necessary and the clinically appropriate intervention at this time. We will monitor medications and make changes as indicated. Likely length of stay 2-4 days. Coding Level of Care Code Acute Risk Compliance Analyst for Ayo Coelho
[2021-01-09 22:00] VITALS: BP 126/77; PULSE 79; RESP 17; TEMP 36.8; O2SAT 98
[2021-01-10 06:00] VITALS: BP 112/51; PULSE 82; RESP 17; TEMP 36.8; O2SAT 99
[2021-01-10] MEDS: ARIPiprazole 10 mg Tablet 15 MG PO (09:56)
--- NOTE | 2021-01-10 10:46 | PM.NPN ---
Subjective NPU Subjective: Interval history: Patient presents today reporting that he is done really well with the Zyprexa at night and only as had his dose of Abilify increased this morning. He endorsed trying to be more social and get out of his room without isolating the way that he does. He reports that that is a skill he like to increase and try while he is here. He denied any major concerns and reports that he is eating okay and sleeping much better. Mental Status Exam MSE Comments: This is an underweight but well-developed white male in hospital scrubs with adequate grooming and limited eye contact. No abnormal movements except for mild psychomotor retardation. Cooperative with exam in no acute distress. Speech was decreased rate and volume. Mood described as a little better, and voices better at night.; affect congruent and odd. Thought process mostly organized. Thought content: Patient denied any suicidal or homicidal ideation, there were no delusions reported or noted, he endorsed auditory hallucinations but denied visual hallucinations. Attention and concentration appear intact and memory appears reliable in general, but none were formally tested. He is alert and oriented times person and place. Insight and judgment are limited but improving. Vitals/I&O/Wt Last Vital Signs Temp 98.2 F 01/10/21 06:00 Pulse 82 01/10/21 06:00 Resp 17 01/10/21 06:00 BP 112/51 01/10/21 06:00 Pulse Ox 99 01/10/21 06:00 Data NPU : 01/06/21 06:30 01/06/21 06:30 A&P Additional A&P Information (1) Acute psychosis: (2) Auditory hallucinations: (3) History of drug abuse: This is a 25-year-old white male with a previous hospitalization who presents with psychosis manifested with auditory hallucinations with pending drug screen open to a trial of an antipsychotic. 1. Continue current medication. 2. Continue every 15 minute checks for safety. 3. Encourage individual, group and milieu therapies. 4. Encourage sober living treatment after discharge at the highest level of care to which he is willing to commit. Involuntary Hold Information 96 Hour Hold: 96 Hour Involuntary Admission: No 96 Hour Hold Ending Date: 09/06/19 96 Hour Hold Ending Time: 20:27 Attestations NPU Medical Necessity Statement*: Inpatient hospitalization is medically necessary and the clinically appropriate intervention at this time. We will monitor medications and make changes as indicated. Likely length of stay 1-3 days. Coding Level of Care Code Acute Mini Lab Operator for Ayo Coelho
[2021-01-10 14:00] VITALS: BP 113/65; PULSE 83; RESP 16; TEMP 36.7; O2SAT 97
[2021-01-10] MEDS: OLANZapine 5 mg ODT PO (20:50)
[2021-01-10] MEDS: trazodone 50 mg Tablet PO (20:51)
[2021-01-10 22:00] VITALS: BP 127/84; PULSE 87; RESP 17; TEMP 36.9; O2SAT 98
[2021-01-11 06:00] VITALS: BP 106/67; PULSE 80; RESP 16; TEMP 36.8; O2SAT 98
[2021-01-11] MEDS: ARIPiprazole 10 mg Tablet 15 MG PO (09:34)
[2021-01-11 14:00] VITALS: BP 131/72; PULSE 75; RESP 16; TEMP 36.8; O2SAT 97
--- NOTE | 2021-01-11 18:41 | P.PN_ITS ---
Subjective NPU Subjective: Interval history: Patient presents today reporting that he is continuing to have a positive experience on the medication. And he is clear that it is helpful. He reports the medication at night continues to be helpful. He reports that he would reach out to his parents to see how they think he is doing. We endorsed a plan to reach out to them as well to begin discharge planning. Mental Status Exam MSE Comments: This is an underweight but well-developed white male in hospital scrubs with adequate grooming and grooming eye contact. No abnormal movements except for mild psychomotor retardation. Cooperative with exam in no acute distress. Speech was more normal rate and slightly decreased volume. Mood described as better.; affect congruent and odd. Thought process mostly organized. Thought content: Patient denied any suicidal or homicidal ideation, there were no delusions reported or noted, he endorsed auditory hallucinations but denied visual hallucinations. Attention and concentration appear intact and memory appears reliable in general, but none were formally tested. He is alert and oriented times person and place. Insight and judgment are limited but improving. Vitals/I&O/Wt Last Vital Signs Temp 99.3 F 01/11/21 20:01 Pulse 84 01/11/21 20:01 Resp 17 01/11/21 20:01 BP 112/69 01/11/21 20:01 Pulse Ox 99 01/11/21 20:01 Data NPU : 01/06/21 06:30 01/06/21 06:30 A&P Additional A&P Information (1) Acute psychosis: (2) Auditory hallucinations: (3) History of drug abuse: This is a 25-year-old white male with a previous hospitalization who presents with psychosis manifested with auditory hallucinations with pending drug screen open to a trial of an antipsychotic. 1. Continue current medication. 2. Continue every 15 minute checks for safety. 3. Encourage individual, group and milieu therapies. 4. Encourage sober living treatment after discharge at the highest level of care to which he is willing to commit. 5. We will get collateral information and consider discharge in next 48 hours. Involuntary Hold Information 96 Hour Hold: 96 Hour Involuntary Admission: No 96 Hour Hold Ending Date: 09/06/19 96 Hour Hold Ending Time: 20:27 Attestations NPU Medical Necessity Statement*: Inpatient hospitalization is medically necessary and the clinically appropriate intervention at this time. We will monitor medications and make changes as indicated. Likely length of stay 1-2 days. Coding Level of Care Code Acute Inspector Plating for Ayo Coelho
[2021-01-11 20:01] VITALS: BP 112/69; PULSE 84; RESP 17; TEMP 37.4; O2SAT 99
[2021-01-11] MEDS: OLANZapine 5 mg ODT PO (20:47)
[2021-01-11] MEDS: trazodone 50 mg Tablet PO (20:47)
--- NOTE | 2021-01-11 20:50 | PC.NURSE ---
Patient given 50mg Trazodone for sleep
[2021-01-12 05:45] VITALS: BP 107/67; PULSE 68; RESP 16; TEMP 36.9; O2SAT 98
[2021-01-12] MEDS: ARIPiprazole 10 mg Tablet 15 MG PO (09:39)
--- NOTE | 2021-01-12 10:17 | P.PN_ITS ---
Subjective NPU Subjective: Interval history: Patient presents today reporting that he is feeling much better and likes the protocol that we have had him on. He reached out to his family as we did as well we discussed the risk of his alternatives of discharge in the morning and they understood and agreed to proceed as documented in this note. They deny having concerns about discharge in the morning. He reports he is eating and sleeping much better. Mental Status Exam MSE Comments: This is an underweight but well-developed white male in hospital scrubs with adequate grooming and grooming eye contact. No abnormal movements except for mild psychomotor retardation. Cooperative with exam in no acute distress. Speech was more normal rate and slightly decreased volume. Mood described as better; affect congruent, odd but brighter. Thought process mostly organized. Thought content: Patient denied any suicidal or homicidal ideation, there were no delusions reported or noted, he endorsed auditory hallucinations but denied visual hallucinations. Attention and concentration appear intact and memory appears reliable in general, but none were formally tested. He is alert and oriented times person and place. Insight and judgment are limited but improving. Vitals/I&O/Wt Last Vital Signs Temp 98.4 F 01/12/21 05:45 Pulse 68 01/12/21 05:45 Resp 16 01/12/21 05:45 BP 107/67 01/12/21 05:45 Pulse Ox 98 01/12/21 05:45 Weight last 48 hrs Weight 62.142 kg Weight 62.142 kg Weight 61.348 kg Weight 58.967 kg Data NPU : 01/06/21 06:30 01/06/21 06:30 A&P Additional A&P Information (1) Acute psychosis: (2) Auditory hallucinations: (3) History of drug abuse: This is a 25-year-old white male with a previous hospitalization who presents with psychosis manifested with auditory hallucinations with pending drug screen open to a trial of an antipsychotic. 1. Continue current medication. 2. Continue every 15 minute checks for safety. 3. Encourage individual, group and milieu therapies. 4. Encourage sober living treatment after discharge at the highest level of care to which he is willing to commit. 5. Discharge in the morning. Involuntary Hold Information 96 Hour Hold: 96 Hour Involuntary Admission: No 96 Hour Hold Ending Date: 09/06/19 96 Hour Hold Ending Time: 20:27 Attestations NPU Medical Necessity Statement*: Inpatient hospitalization is medically necessary and the clinically appropriate intervention at this time. We will monitor medications and make changes as indicated. Likely length of stay 1-2 days. Coding Level of Care Code Acute Television Antenna Installer for Ayo Coelho
[2021-01-12 14:00] VITALS: BP 146/63; PULSE 84; RESP 16; TEMP 36.7; O2SAT 96
[2021-01-12 20:09] VITALS: BP 120/72; PULSE 81; RESP 18; TEMP 36.8; O2SAT 96
[2021-01-12] MEDS: OLANZapine 5 mg ODT PO (21:32)
[2021-01-13 06:00] VITALS: BP 112/55; PULSE 58; RESP 17; TEMP 36.9; O2SAT 98
--- NOTE | 2021-01-13 08:28 | PM.NDC ---
Diagnoses at Discharge Discharge Diagnosis (1) Acute psychosis: Status: Acute (2) Auditory hallucinations: Status: Acute (3) History of drug abuse: Status: Acute Reason for Visit Reason for Visit: mhe Brief History: History of Present Illness Rashad Kilgore is a 25 year old male who presented to the emergency department with the following report: Chief Complaint: Psychiatric Symptoms Stated Complaint: auditory hallucinations Time Seen by Provider: 01/06/21 06:28 History of Present Illness: HPI Narrative: 25-year-old male presents to the emergency room with complaints of auditory hallucinations. He states that feels like someone is in the next room yelling at them continuously has not been able to sleep. States the voices are very angry. He denies any suicidal or homicidal ideation. He is not on any prescription medication denies any recent [id number] medication use denies any use of drugs or alcohol. He is not previously had this. Is not been seeing a psychiatrist is not on any antipsychotics no family history of psychiatric disease. He has not recently been ill or had Covid. MD complaint: feels depressed and altered mental status Onset (ago): day(s) Duration: constant History of same: No Relieving factors: none Exacerbating factors: none Associated psychiatric symptoms: none Associated symptoms: Reports auditory hallucinations, depression and racing thoughts; Deny visual hallucinations, homicidal ideation or suicidal ideation Treatments prior to arrival: none. He was admitted to the neuropsychiatric unit for definitive treatment of those issues. On the unit he presents as a fairly confused or resistant historian. Downplaying the role that addiction may have played in his presentation in either impressions, giving confusing or ambivalent answers to questions or saying I do not know. Denied recollection of his hospitalization 16 months ago. The interview did not yield much in the way of understanding his presentation other than him being clear that he is experiencing auditory hallucinations reporting that they get louder as his outside world gets quieter evidence overwhelming at times. We discussed the risk benefits and alternatives of initiating Abilify and he understood and agreed to proceed as documented in this note. He denies substantive changes in his own excerpt of his 2019 inpatient evaluation is included below for context. Per his 09/01/2019 [facility] inpatient psychiatric evaluation: History of Present Illness Chief complaint I was living in a motel. Some rowdyteenagers got me in trouble. Chief complaint: History of present illness: Rashad Kilgore Is a 23-year-old man with no prior psychiatric history who was admitted under a 96 hour involuntary commitment signed by Judge Diggs for suspected drug use. The patient himself admits that he was using amphetamines but denies that it is a problem. He says that he was living in a motel for about a week. He can explain why he left the home of his family to live in a motel. He does not seem to think it's much of a problem. He says that he plans to return to the motel. He does not volunteer that he was using amphetamines until he is informed that both marijuana and amphetamines were found in his urine. He considers the marijuana a medication. He has no other comments. He doesn't feel that we can do anything for him. He says that he is not feeling very well today and would like to go back to sleep. There are affidavits in his chart filed by his mother, Savi, his father, Garett, and his grandmother, Macey Canchola. All 3 affidavits indicate a significant change in the past week. He has been increasingly confused. All 3 described the events that demonstrate his degree of paranoia. These include reporting that his parents had drilled holes in the ceiling in his motel room and was watching his every move. Talking as though he had enhanced hearing and vision. The family is concerned because this is a significant change in his behavior and mental state. They do not see this as a chronic problem. However they make the argument that with continued similar activity, he will either harm himself or come to some harmful and. Mental health history:He denies any history of psychiatric hospitalizations or treatment. Social history:He is a high school graduate from [employer]. He is unemployed. He has no vocational plans. 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 He said that it was a horrible job.He has no career plans. I refer you to his mental status exam below. Legal history:He denied any history of incarceration or active charges or probation. Past medical history:He reports himself in good medical health. He denies the presence of any medication allergies. The only medication he is currently taking is marijuana. He has no history of surgeries. Mental Status Exam: The patient is encountered lying in his bed morning. He is easily aroused by verbal stimuli. He accompanies the physician to the interview room. He is not believed to be a reliable informant. Information provided is internally consistent. However he does not provide any more information than what is asked and many questions are answered with either an affirmative or negative nod. Appearance: hygiene is fair; no gross neurological deficits., gait is unremarkable; AIMS=0 Speech: Speech is of normal rate and rhythm and easily understood. Thought processes: Thought processes are Unable to be assessed. Judgment is not adequate for safety. Psychotic processes: There is no indication of guarding or paranoia. There is no attention to the internal stimuli. Auditory and visual hallucinations are denied. Judgment: Insight is Not assessed. Problem solving skills are Not formally assessed Orientation: The patient is oriented to person, place time and situation. Memory: no deficits noted in immediate, intermediate, or remote spheres. Attention: The patient is alert and interpersonally engaged. Language: Verbalizations are coherent. Fund of knowledge: Fund of knowledge is Not assessed Affect/Mood: Affect is Flat with a Self-reported euthymic mood. He denied suicidal ideation Affective range Constricted Psychosis: perception unimpaired except through cognitive distortion; reality testing intact. Diagnoses: Amphetamine intoxication Amphetamine use disorder Assessment:At this time, his diagnoses are limited to his substance use problem on presentation. He was not motivated to be engaged in this interview. However he appears to be a person that eventually will be motivated to be more candid about his situation and engage in therapeutic efforts if he so chooses. Treatment plan: Due to the psychiatric conditions and treatment listed in the Assessment and Plan - the patient requires continued hospitalization. Will provide a safe and therapeutic environment for patient.. Will continue inpatient treatment to allow for medication adjustment and monitoring. Will continue q15 min safety checks. Hospital day #1: At this point we will initiate the methamphetamine withdrawal protocol. No further medications will be provided. We will reassess him again tomorrow. Monitor patient's mood, sleep, appetite, and behavior closely. Encourage patient to participate in individual and group therapeutic sessions on the chavira. Estimated length of stay 5 days The expected benefits and potential side effects of patient's psychiatric medications were discussed with the patient. The patient understands and consents to treatment.CRITERIA FOR DISCHARGE: stable on medications and no longer an im Hospital Course Hospital Course He slowly acclimated to the individual, group and milieu therapies provided. He was started on Abilify which was titrated to 15 mg p.o. every morning and given Zyprexa 5 mg at night with marked improvement. He was able to contract for safety prior to discharge. During the hospitalization, patient had routine laboratory studies which were within normal limits except for few outliers. Additionally there was a general medical evaluation which was also within normal limits and revealed no new acute processes. Discharge Summary: At the time of discharge, lethality was denied and psychosis was resolving. Mood and anxiety were well managed. Patient endorsed a plan to avoid all drugs of abuse and follow-up with the aftercare recommendations of the treatment team. Patient was evaluated and deemed to be absent credible lethality, and had achieved the maximum benefit from an inpatient hospitalization, so was discharged. Involuntary Hold Information 96 Hour Hold: 96 Hour Involuntary Admission: No 96 Hour Hold Ending Date: 09/06/19 96 Hour Hold Ending Time: 20:27 Mental Status Exam MSE Comments: This is an underweight but well-developed white male in hospital scrubs with adequate grooming and grooming eye contact. No abnormal movements except for mild psychomotor retardation. Cooperative with exam in no acute distress. Speech was more normal rate and slightly decreased volume. Mood described as better; affect congruent, odd but brighter. Thought process mostly organized. Thought content: Patient denied any suicidal or homicidal ideation, there were no delusions reported or noted, he endorsed auditory hallucinations but denied visual hallucinations. Attention and concentration appear intact and memory appears reliable in general, but none were formally tested. He is alert and oriented times person and place. Insight and judgment are limited but improving. Discharge Data Vitals: Last Vital Signs Temp 98.4 F 01/13/21 06:00 Pulse 58 L 01/13/21 06:00 Resp 17 01/13/21 06:00 BP 112/55 01/13/21 06:00 Pulse Ox 98 01/13/21 06:00 Discharge Plan Discharge Patient Disposition: Home Condition: Stable Prescriptions: New aripiprazole 10 mg Tablet 15 mg PO DAILY 30 Days Qty: 30 RF: 1 Zyprexa 5 mg tablet 5 mg PO BEDTIME 30 Days Qty: 30 RF: 1 Discharge Orders: Discharge Order (Routine); Ordered 01/13/21 Ordered By: Ken Kilgore Discharge Diet: Regular Discharge Activity: Resume usual activity Patient Instructions: Olanzapine (By mouth), Aripiprazole (By mouth), Opioid Safety Discharge Attestations NPU Time Spent in Discharge Care*: less than 30 min Specific Discharge Activities: Specific discharge activities: educating patient, discussing with patient case coordinator/social workers/dc planners, documenting/other paperwork and evaluating patient/reviewing data Coding Level of Care Code Acute Chg FW DC note Diagnoses Acute psychosis F23 Auditory hallucinations R44.0 History of drug abuse F19.11
[2021-01-13 08:43] VITALS: BP 112/55; PULSE 58; RESP 17; TEMP 36.9; O2SAT 98
[2021-01-13] MEDS: ARIPiprazole 10 mg Tablet 15 MG PO (09:40)
--- NOTE | 2021-01-13 10:59 | PC.NURSE ---
spoke to Rhona at [facility] in [facility], [place] to give verbal order for discharge medications: Abilify & Zyprexa
== END 2021-01-13 10:01 | disposition home or self-care (01) | DRG 885 ==
LOC: ER 06:28 → ER IP 13:06 → NP 14:16
PROVIDERS: Admitting Provider Psychiatry & Neurology Psychiatry; Emergency Provider Family Medicine; Visit Provider Psychiatry & Neurology Psychiatry
DX: F23 Brief psychotic disorder (principal); F19.11 Other psychoactive substance abuse, in remission; Z56.0 Unemployment, unspecified
CPT/HCPCS: 80053; 80306; 80307; 81003; 85025; 99285